=== PATIENT | female | born 2000 | race Caucasian/White ===

== ENCOUNTER 2021-08-20 04:59 | Inpatient (IN) ==
[2021-08-20] MEDS ORDERED: OXYTOCIN 30 UNITS/500 ML BAG IV PRN ×2 (09:30)
--- NOTE | 2021-08-20 09:32 | History & Physical Report ---
Date of Service August 20, 2021 Assessment & Plan (1) Supervision of normal intrauterine in primigravida: Plan: Admit to L&D. Cervix has changed to 3-4cm/100/-2, bulging membranes. labs, EFM, toco. Agreeable to pitocin if needed. Asks for stadol. History of Present Illness Chief Complaint: contractions Primary Care Provider: NO PCP 21yo @ 39 6/7, contractions since early this morning. + movement. No vaginal bleeding, no leaking fluid. Allergies Allergy/AdvReac Type Severity Reaction Status Date / Time No Known Allergies Allergy Verified 08/20/21 05:20 Home Medications Medication Instructions Recorded Confirmed Type prenat.vits,desi,otu-kbso-tpsej 1 tab PO DAILY 01/16/21 08/20/21 History Patient History Medical History (Updated 08/20/21 @ 05:20 by Gosia Abdi, RN) Epilepsy in childhood, "out grew" at age 8. No medications currently. 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 No s/s chorio or abruption. Skin: no rashes, warm and dry Psychiatric: A+Ox3, euthymic affect Results & Data ([facility]) Vital Signs (Past 12 Hours) Vital Signs Temp Pulse Resp BP 01/25/22 07:00 36.4 C L 82 16 135/86 08/20/21 05:43 93 H 113/68 08/20/21 05:15 36.6 C 20 08/20/21 05:11 93 H 130/79 Monitoring External Monitor FHT Cat 1 Tocodynamometer [place] Q 5 Coding Level of Care Code None Diagnoses Supervision of normal intrauterine in primigravida Z34.00
[2021-08-20] MEDS ORDERED: BUTORPHANOL TARTRATE 1 MG/ML VIAL IV ONE (09:35)
[2021-08-20 09:57] LABS: Hematocrit (blood only) 38.4 % (37-47); Hemoglobin 13.4 g/dL (12.0-16.0); Mean Corpuscular Hemoglobin 33.2 pg (25-34); Mean Corpuscular Hgb Conc 34.9 g/dL (32-36); Mean Platelet Volume 12.1 fL (7.4-10.4); Platelet Count 140 K/uL (130-400); RDW Coefficient of Variation 12.8 % (11.5-14.5); RDW Standard Deviation 44.1 fL (36.4-46.3); Red Blood Count 4.04 M/uL (4.2-5.4); White Blood Count 13.49 K/uL (4.8-10.8)
[2021-08-20] MEDS: LACTATED RINGER'S 1,000 ML IV PRN ×2 (10:19→16:12)
[2021-08-20] MEDS ORDERED: SODIUM CHLORIDE 0.9% INJ 10 ML VIAL ONE (14:57)
[2021-08-20] MEDS ORDERED: BUPIVACAINE 0.25% 30 ML VIAL ONE (14:57)
[2021-08-20] MEDS ORDERED: ePHEDrine sulfate 50 MG/ML AMP ONE (14:57)
[2021-08-20] MEDS ORDERED: fentaNYL citrate 100 MCG/2 ML VIAL ONE (14:57)
[2021-08-20] MEDS ORDERED: fentaNYL 2MCG/ML ROPIVACAINE 1.25MG/ML 100 ML BAG EPI ONE (14:58)
[2021-08-20] MEDS ORDERED: diphenhydrAMINE 50 MG/ML VIAL IV PRN (15:09)
[2021-08-20] MEDS ORDERED: NALOXONE HCL 0.4 MG/1 ML VIAL/CARP IV PRN (15:09)
[2021-08-20] MEDS ORDERED: ONDANSETRON INJ 2 MG/ML 2 ML VIAL IV PRN (15:09)
[2021-08-20] MEDS ORDERED: NALOXONE HCL 1 MG in SODIUM CHLORIDE 0.9% 1000ML 1,000 ML IV PRN (15:09)
[2021-08-20] MEDS ORDERED: ePHEDrine sulfate 50 MG/ML AMP IV PRN (15:09)
[2021-08-20] MEDS ORDERED: NALBUPHINE HCL INJ 10 MG/ML AMP IV PRN (15:09)
--- NOTE | 2021-08-20 15:11 | Anesthesiology Consultation ---
Date of Service August 20, 2021 Assessment & Plan (1) Encounter for pre-operative examination: Chart Review Chart Review: Patient NOT seen in Pre Admission Testing and Acceptable Risk for Labor Epidural Consults Requested none History Height/Weight Height: 5 ft 2 in Weight: 84.368 kg Allergies Allergy/AdvReac Type Severity Reaction Status Date / Time No Known Allergies Allergy Verified 08/20/21 05:20 Medications Home Medications Medication Instructions Recorded Confirmed Last Taken prenat.vits,desi,nms-yeoz-sdhnq 1 tab PO DAILY 01/16/21 08/20/21 08/19/21 08:00 Active Medications Generic Name Dose Route Start Last Admin Trade Name Freq PRN Reason Stop Dose Admin Lactated Ringer's 1,000 mls @ 125 mls/hr 08/20/21 09:30 08/20/21 10:19 Lr IV 08/22/21 09:29 125 mls/hr .Q8H PRN Administration L&D Protocol Protocol Past Medical History Medical History Epilepsy in childhood, "out grew" at age 8. No medications currently. Social History Smoking Status: Never smoker Hx Alcohol Use: No Hx Substance Use: No substance use type: does not use Physical Exam Vital Signs Last Vital Signs Temp 36.6 C 08/20/21 14:51 Pulse 77 08/20/21 15:12 Resp 16 08/20/21 14:51 BP 135/78 08/20/21 14:51 Pulse Ox 96 08/20/21 15:12 Testing Laboratory Results 08/20/21 09:37
[2021-08-20] MEDS: fentaNYL 2MCG/ML ROPIVACAINE 1.25MG/ML 100 ML BAG EPI PRN ×2 (15:40→23:05)
--- NOTE | 2021-08-20 16:58 | Labor Progress Brief Note ---
Date of Service August 20, 2021 Subjective Comfortable with epidural. AROM clear fluid FHT Cat 1 [place] Q 2 SVE 5/100/-2 Assessment & Plan Admission and Anticipated Discharge Date Admission Date: August 20, 2021 Results & Data ([facility]) Vital Signs (Past 12 Hours) Vital Signs Temp Pulse Resp BP Pulse Ox Pulse Ox 08/20/21 16:54 115 H 94 08/20/21 16:52 93 H 99 08/20/21 16:50 81 110/62 08/20/21 16:47 92 H 97 08/20/21 16:45 94 H 92 08/20/21 16:44 99 H 128/74 08/20/21 16:42 82 96 08/20/21 16:38 105 H 119/68 08/20/21 16:37 103 H 99 08/20/21 16:33 78 108/60 08/20/21 16:32 82 98 08/20/21 16:28 84 108/59 L 08/20/21 16:27 81 97 08/20/21 16:23 90 118/68 08/20/21 16:22 93 H 99 08/20/21 16:20 91 H 121/62 08/20/21 16:18 87 91 08/20/21 16:17 86 98 97 08/20/21 16:13 77 106/63 08/20/21 16:12 79 97 08/20/21 16:07 82 105/59 L 96 08/20/21 16:05 77 104/58 L 08/20/21 16:03 81 113/63 08/20/21 16:02 80 96 08/20/21 16:01 87 114/65 08/20/21 15:59 83 111/67 08/20/21 15:57 90 109/66 97 08/20/21 15:55 89 108/64 08/20/21 15:54 91 H 115/66 08/20/21 15:52 100 H 97 08/20/21 15:51 86 95/55 L 08/20/21 15:49 90 96/54 L 08/20/21 15:47 85 102/55 L 96 08/20/21 15:45 88 94/57 L 08/20/21 15:43 95 H 101/59 L 08/20/21 15:42 86 96 08/20/21 15:41 83 100/59 L 08/20/21 15:39 98 H 119/62 94 08/20/21 15:37 91 H 121/81 97 08/20/21 15:35 92 H 121/76 08/20/21 15:32 101 H 97 08/20/21 15:27 110 H 96 08/20/21 15:22 116 H 97 08/20/21 15:17 94 H 99 08/20/21 15:12 77 96 08/20/21 15:07 99 H 98 08/20/21 15:02 94 H 97 08/20/21 14:57 90 97 08/20/21 14:56 96 H 92 08/20/21 14:52 97 H 97 08/20/21 14:51 36.6 C 96 H 16 135/78 08/20/21 11:20 36.8 C 16 08/20/21 11:19 75 133/65 08/20/21 07:00 36.4 C L 82 16 135/86 08/20/21 05:43 93 H 113/68 08/20/21 05:15 36.6 C 20 08/20/21 05:11 93 H 130/79 Coding Level of Care Code None
[2021-08-20] MEDS ORDERED: NURSING L&D Epidural Breakthrough Pain Update ONE (21:19)
[2021-08-21] MEDS: LACTATED RINGER'S 1,000 ML IV PRN (00:57)
[2021-08-21] MEDS ORDERED: SILVER NITR/POTASSIUM NITRATE APPLICATOR ONE (02:59)
--- NOTE | 2021-08-21 03:11 | Delivery Summary ---
Vaginal Delivery Summary Date of Service August 21, 2021 Vaginal Delivery Summary and 1st Degree LAC Vaginal Delivery Summary: Pre-delivery diagnoses: 21yo @ 40 0/7, spontaneous labor Post-delivery diagnoses: same Procedure: spontaneous vaginal delivery, repair of 1st degree perineal laceration Surgeon: Chaya Bustamante DO Complications: none Findings: Viable male . Apgars: 8/9. Weight pending, please see nursery records. Estimated blood loss: 300ml Description of delivery: The patient progressed to complete with epidural anesthesia. She then began to push. She spontaneously vaginally delivered a viable from the cephalic presentation. The head delivered in KITTY position. The anterior shoulder delivered, followed by the posterior shoulder, followed by the body. No nuchal. The baby was placed on mother's abdomen and a spontaneous cry was heard. Delayed cord clamping was employed, and the cord was doubly clamped and cut. Cord blood was obtained. The placenta was delivered spontaneously intact with a 3-vessel cord. The uterus and vagina were swept of clots and debris. IV pitocin was given. The uterus became firm. The cervix, vagina, and perineum were inspected and a 1st degree laceration was noted and repaired with 3-0 vicryl. Excellent hemostasis was observed. The mother and baby are recovering in stable and good condition in the room. Sponge, needle and instrument counts were correct x 2. Chaya Bustamante DO [facility] Vaginal Delivery Charge Vaginal Delivery Codes: 08548 global code for the antepartum, delivery, and post- Delivery Type Details: and 1st Degree LAC
[2021-08-21] MEDS ORDERED: SUPERCREAM 0.870% 15 GM JAR EXT PRN (03:58)
[2021-08-21] MEDS ORDERED: HYDROCORTISONE ACETATE 25 MG SUPP PR PRN (03:58)
[2021-08-21] MEDS ORDERED: IBUPROFEN 600 MG TAB PO PRN (03:58)
[2021-08-21] MEDS ORDERED: oxyCODONE/ACETAMINOPHEN 5mg/325mg TAB PO PRN (03:58)
[2021-08-21] MEDS ORDERED: ACETAMINOPHEN 325 MG TAB PO PRN (03:58)
[2021-08-21] MEDS ORDERED: DIPHTHERIA/TETANUS/PERTUSSIS 0.5 ML SYR/VIAL IM ONE (03:58)
[2021-08-21] MEDS ORDERED: BENZOCAINE 20% AER SPR 82.5 GM CAN EXT PRN (03:58)
[2021-08-21] MEDS ORDERED: OXYTOCIN 30 UNITS/500 ML BAG IV PRN (03:58)
[2021-08-21] MEDS: DOCUSATE SODIUM 100 MG CAP PO SCH ×2 (09:14→19:38)
[2021-08-21] MEDS: PRENATAL VITAMIN 1 TAB PO SCH (09:14)
--- NOTE | 2021-08-21 10:47 | Anesthesia Procedure Note ---
Date of Service August 21, 2021 Anesthesia Post Epidural Note Vital Signs Vital Signs: Temp Pulse Resp BP Pulse Ox 97.7 F 83 20 119/69 97 08/21/21 08:56 08/21/21 08:56 08/21/21 08:56 08/21/21 08:56 08/21/21 08:56 Pain Intensity Pelvic: Pain Intensity: 2 Notes Mental Status: alert / awake / arousable and participated in evaluation Nausea / Vomiting: adequately controlled Pain: adequately controlled Airway Patency, RR, SpO2: stable & adequate BP & HR: stable & adequate Hydration State: stable & adequate Neuraxial Anesthesia: was administered and sensory block is resolving Anesthetic Complications: no major complications apparent and Pt Satisfied with anesthetic care Epidural: Removed without complications and With tip intact
--- NOTE | 2021-08-22 06:17 | Obstetrical Progress Note ---
Date of Service <Lucas Ureña DO - Last Filed: 08/22/21 07:18> August 22, 2021 Assessment & Plan <Lucas Ureña DO - Last Filed: 08/22/21 07:18> (1) Encounter for care and examination after delivery: 21 yo post day 1 from vaginal delivery, doing well. -Continue routine post care. -vital signs reviewed and WNL. (Tmax 37.6) -Blood type O+, GBS negative, Rubella Immune -Encourage ambulation, monitor and control pain with Motrin, tylenol PRN, resume regular diet, monitor lochia. -encourage breast feeding. -Discussed discharge with patient. Patient will follow up with Dr. Bustamante in the office in 6 weeks. <Dulce Maria Marc MD, FACOG - Last Filed: 08/22/21 07:38> (1) Encounter for care and examination after delivery: Subjective <Lucas Ureña DO - Last Filed: 08/22/21 07:18> Ambulation: ambulating normally Voiding: no voiding problems Passing Gas:: Yes Diet Tolerance:: regular diet Lochia:: Small Feeding Type:: breast feeding Current Pain Level(1-10): 0 Review of Systems Denies fever, chills, sweats Denies shortness of breath, difficulty breathing, chest pain, palpitations, chest pressure. Denies breast pain. Denies dysuria. Denies headache or changes in vision Physical Exam <Lucas Ureña DO - Last Filed: 08/22/21 07:18> General: Alert, oriented. No acute distress. Cardiac: Regular rate and rhythm, no murmurs/rubs/gallops. Respiratory: Clear to auscultation bilaterally a/p, no wheezes/rales/rhonchi. No increased work of breathing. Symmetrical chest rise. No respiratory distress. Abdomen: Soft, nontender, nondistended. Bowel sounds present. Uterus: Uterine fundus firm, palpable 3 cm below umbilicus. Lower Extremities: No lower extremity edema or swelling. No deep calf pain. Pat's negative bilaterally Results & Data ([facility]) <Lucas Ureña DO - Last Filed: 08/22/21 07:18> Vital Signs (Past 12 Hours) Vital Signs Temp Pulse Resp BP 08/21/21 23:30 36.8 C 68 18 134/86 08/21/21 19:30 36.7 C 92 H 20 135/84 <Dulce Maria Marc MD, FACOG - Last Filed: 08/22/21 07:38> Co-Signing Physician Notes Resident Physician Supervision Note: I interviewed and examined the patient. Discussed with Dr. Ureña and agree with findings and plan as documented in the note. Any exceptions or clarifications are listed here: Doing well. Plan d/c today. Instructions given. Documented By: Dulce Maria Marc MD, FACOG Resident Activity Tracking <Lucas Ureña DO - Last Filed: 08/22/21 07:18> Resident Involvement: Resident Care Provided Care Provided: OB Delivery
[2021-08-22 06:51] LABS: Hematocrit (blood only) 33.2 % (37-47); Hemoglobin 11.2 g/dL (12.0-16.0)
[2021-08-22] MEDS: PRENATAL VITAMIN 1 TAB PO SCH (07:40)
[2021-08-22] MEDS: DOCUSATE SODIUM 100 MG CAP PO SCH (07:40)
[2021-08-22] MEDS ORDERED: bisacodyL 5 MG TABEC PO SCH (20:00)
[2021-08-23] MEDS ORDERED: bisacodyL 10 MG SUPP PR PRN
== END 2021-08-22 12:25 | disposition home or self-care (01) | DRG 807 ==
LOC: OPB 04:59 → 4S1 05:03 → 4S2 08-21 05:35

== ENCOUNTER 2023-11-03 07:52 | Inpatient (IN) ==
[2023-11-03] MEDS ORDERED: LIDOCAINE 1% LOCAL 20 ML VIAL INFIL PRN (08:42)
[2023-11-03 09:19] LABS: Hematocrit (blood only) 35.4 % (37.0-47.0); Hemoglobin 12.2 g/dl (12.0-16.0); Mean Corpuscular Hemoglobin 31.9 pg (25.0-34.0); Mean Corpuscular Hgb Conc 34.5 g/dL (32.0-36.0); Mean Corpuscular Volume 92.4 fL (80.0-100.0); Mean Platelet Volume 12.2 fL (9.4-12.4); Platelet Count 137 K/uL (130-400); RDW Coefficient of Variation 13.9 % (11.5-14.5); RDW Standard Deviation 46.4 fL (36.4-46.3); Red Blood Count 3.83 M/uL (4.20-5.40); White Blood Count 7.07 K/ul (4.8-10.8)
[2023-11-03] MEDS: LACTATED RINGER'S 1,000 ML IV PRN (09:27)
--- NOTE | 2023-11-03 09:31 | History & Physical Report ---
Date of Service November 03, 2023 Assessment & Plan (1) Encounter for supervision of normal in multigravida: Plan: 23 yo at 40 3/7 wga presents for post dates iol VSS Fetus cat 1 Labor - 35cc andres placed ,tolerated well. Will start pit GBS neg epidural prn Admission and Anticipated Discharge Date Admission Date: November 03, 2023 History of Present Illness Chief Complaint: iol Primary Care Provider: NO PCP 23 yo at 40 3/7 wga presents for post dates iol. 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 No medications currently. Surgical History Status post surgery elbow Family History (Updated 04/13/23 @ 10:50 by Adry Nichols) Denies family history of Ovarian cancer Breast cancer Colorectal cancer Social History (Updated 04/13/23 @ 10:51 by Adry Nichols) Smoking Status: Never smoker Do You Dip or Chew Tobacco: No; Hx Alcohol Use: No Hx Substance Use: No Preferred Language: [place]an Fiction And Nonfiction Author Required: No Beliefs That Will Affect Care: None marital status: Single marital status details: Diego (24) [phone] Current Living Situation: Spouse Current Living Situation Comment: lives with spouse, child, 2 cats, FOB to change litter current occupational status: employed 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[employer] Other Information That Helps Us Care for You: No Feels Safe at Home: Yes Safety Concerns: Feels Safe At This Time Assistive Devices: None Physical Exam Genitourinary: OB Exam Abdomen: + vertex and + estimated weight (7-8) Manual OB Exam: + cervical dilation 1 cm, + cervical effacement 30% and + station -2 OB Exam Monitor Tracing: + external FHT monitor used, + external uterine monitor used (irreg) and + category I (140/mod/+accel/-decel) Results & Data Vital Signs (Past 12 Hours) Vital Signs Temp Pulse Resp BP 11/03/23 08:09 98.1 F 20 11/03/23 08:05 20 11/03/23 08:05 98.1 F 20 11/03/23 08:03 82 138/74 Laboratory Results OB Labs: Blood Type O Positive 04/14/23 Antibody Screen NEGATIVE 04/14/23 Hemoglobin 12.3 g/dl (12.0-16.0) 08/10/23 Hematocrit 34.6 % (37.0-47.0) L 08/10/23 Mean Corpuscular Volume 89.2 fL (80.0-100.0) 04/14/23 Platelet Count 181 K/uL (130-400) 04/14/23 Rubella IgG Antibody Immune (Immune) 04/14/23 Rapid Plasma Reagin Nonreactive (Nonreactive) 04/14/23 Hepatitis B Surface Antigen Neg (Neg) 01/22/21 Hepatitis B Surface Antigen. NON-REACTIVE (NON-REACTIVE) 04/14/23 Hepatitis C Antibody (EIA) NON-REACTIVE (NON-REACTIVE) 04/14/23 HIV (1&2) Ab and P24 Ag, 4th Gener Neg (Neg) 01/22/21 HIV (1&2) Ag and Ab Confirmation NON-REACTIVE (NON-REACTIVE) 04/14/23 Glucose 1 Hour 50 gm Load 87 mg/dl (70-130) 08/10/23 OB Optional Labs: Chlamydia trachomatis RNA Not Detected (NotDetected) 04/14/23 Neisseria gonorrhoeae RNA Not Detected (NotDetected) 04/14/23 Labs Reviewed: cfdna-low risk--mln cf/sma-negative prior --mln msafp declines smp GBS neg Diagnostic Findings post plac Coding Level of Care Code None Diagnoses Encounter for supervision of normal in multigravida Z34.80
[2023-11-03] MEDS: OXYTOCIN 30 UNITS/NSS 30 UNITS/500 ML BAG IV PRN ×2 (09:46→23:06)
--- NOTE | 2023-11-03 12:39 | Anesthesiology Consultation ---
Date of Service November 03, 2023 Assessment & Plan Chart Review Chart Review: Patient NOT seen in Pre Admission Testing and Acceptable Risk for Labor Epidural Consults Requested none History Height/Weight Height: 5 ft 2 in Weight: 87.543 kg Allergies Allergy/AdvReac Type Severity Reaction Status Date / Time No Known Allergies Allergy Verified 11/02/23 13:34 Medications Home Medications Medication Instructions Recorded Confirmed Last Taken prenat.vits,desi,dhh-ocpo-uykje 1 tab PO DAILY 01/16/21 11/03/23 11/03/23 Active Medications Generic Name Dose Route Start Last Admin Trade Name Freq PRN Reason Stop Dose Admin Oxytocin 30 units in 500 mls @ 8 mls/hr 11/03/23 08:47 11/03/23 11:30 Pitocin 30 Units/Nss IV 11/05/23 08:46 0.48 units/hr .Q24H PRN 8 mls/hr Labor Induction/Augmentation Titration Protocol 0.48 UNITS/HR Lactated Ringer's 1,000 mls @ 125 mls/hr 11/03/23 08:42 11/03/23 12:10 Lr IV 11/05/23 08:41 999 mls/hr .Q8H PRN Infusion L&D Protocol Protocol Past Medical History Medical History History of chicken pox Encounter for care and examination after delivery Encounter for pre-operative examination Epilepsy in childhood, "out grew" at age 8. No medications currently. Past Family History Family History Denies family history of Ovarian cancer Breast cancer Colorectal cancer Past Surgical History Surgical History Status post surgery elbow Social History Smoking Status: Never smoker Do You Dip or Chew Tobacco: No Hx Alcohol Use: No Hx Substance Use: No substance use type: does not use Physical Exam Vital Signs Last Vital Signs Temp 98.1 F 11/03/23 08:09 Pulse 75 11/03/23 12:09 Resp 16 11/03/23 12:30 BP 126/81 11/03/23 12:09 Testing Laboratory Results 11/03/23 08:59 Blood Type Cancelled 11/03/23 08:59 Blood Type O Positive 11/03/23 08:59 Antibody Screen Cancelled 11/03/23 08:59 Antibody Screen NEGATIVE 11/03/23 08:59
[2023-11-03] MEDS ORDERED: diphenhydrAMINE 50 MG/ML VIAL IV PRN ×2 (12:40→22:44)
[2023-11-03] MEDS ORDERED: ROPIVACAINE 0.5% PF 5 MG/ML 20 ML VIAL EPI PRN (12:40)
[2023-11-03] MEDS ORDERED: ePHEDrine sulfate 50 MG/ML AMP IV PRN ×2 (12:40→22:44)
[2023-11-03] MEDS ORDERED: LIDOCAINE 2% MPF LOCAL 5 ML VIAL EPI PRN (12:40)
[2023-11-03] MEDS ORDERED: NALOXONE HCL 0.4 MG/1 ML VIAL/CARP IV PRN ×2 (12:40→22:44)
[2023-11-03] MEDS ORDERED: NALOXONE HCL 1 MG in SODIUM CHLORIDE 0.9% 1,000 ML IV PRN ×2 (12:40→22:44)
[2023-11-03] MEDS ORDERED: NALBUPHINE HCL 5 MG in SYRINGE 0 ML IV PRN ×2 (12:40→22:44)
[2023-11-03] MEDS: fentANYL 2 MCG/ML BUPIVacaine 0.125%-NSS 100ML BAG EPI PRN (13:06)
[2023-11-03] MEDS: LIDOCAINE 2%/EPINEPHRINE 1:200,000 20 ML PF EPI STA (13:06)
[2023-11-03] MEDS: BUPIVACAINE 0.25% PF 30 ML VIAL EPI STA (13:06)
[2023-11-03] MEDS: BUPIVACAINE 0.25% PF 30 ML VIAL ONE ×2 (13:30→16:27)
[2023-11-03] MEDS: SODIUM CHLORIDE 0.9% PF INJ 10 ML VIAL EPI STA (13:31)
[2023-11-03] MEDS: LIDOCAINE 2%/EPINEPHRINE 1:200,000 20 ML PF ONE ×2 (13:31→16:26)
[2023-11-03] MEDS: ePHEDrine sulfate 50 MG/ML AMP ONE ×2 (13:31→16:37)
[2023-11-03] MEDS: fentANYL 2 MCG/ML BUPIVacaine 0.125%-NSS 100ML BAG ONE ×2 (13:31→16:40)
[2023-11-03] MEDS: SODIUM CHLORIDE 0.9% PF INJ 10 ML VIAL ONE ×2 (13:31→16:52)
[2023-11-03] MEDS: fentaNYL citrate PF 100 MCG/2 ML VIAL EPI STA (13:31)
[2023-11-03] MEDS: fentaNYL citrate PF 100 MCG/2 ML VIAL ONE ×2 (13:31→16:38)
--- NOTE | 2023-11-03 13:46 | Labor Progress Brief Note ---
Date of Service November 03, 2023 Subjective comfortable w/ epidural, balloon out earlier Assessment & Plan (1) Encounter for supervision of normal in multigravida: Plan: 23 yo at 40 3/7 wga presents for post dates iol VSS Fetus cat 1 Labor - pit at 8, now s/p arom. continue induction GBS neg epidural in place Admission and Anticipated Discharge Date Admission Date: November 03, 2023 Physical Exam Genitourinary: Manual OB Exam: + cervical dilation 4 cm, + cervical effacement 50%, + station -2 and + amniotic fluid clear OB Exam Monitor Tracing: + external FHT monitor used, + external uterine monitor used (q2-4) and + category I (120/mod/+accel/-decel) Results & Data Vital Signs (Past 12 Hours) Vital Signs Temp Pulse Resp BP Pulse Ox 11/03/23 13:40 98 11/03/23 13:40 89 11/03/23 13:39 83 11/03/23 13:39 121/78 11/03/23 13:35 98 11/03/23 13:35 92 H 11/03/23 13:33 111 H 11/03/23 13:33 111/60 11/03/23 13:30 97 11/03/23 13:30 98 H 11/03/23 13:29 88 11/03/23 13:29 108/63 11/03/23 13:25 18 11/03/23 13:25 18 11/03/23 13:25 98 11/03/23 13:25 107 H 11/03/23 13:25 105/56 L 11/03/23 13:20 20 11/03/23 13:20 20 11/03/23 13:20 96 11/03/23 13:20 85 11/03/23 13:18 106 H 11/03/23 13:18 116/65 11/03/23 13:17 88 11/03/23 13:17 121/70 11/03/23 13:15 97 11/03/23 13:15 100 H 11/03/23 13:15 92 H 11/03/23 13:15 111/62 11/03/23 13:13 81 11/03/23 13:13 114/67 11/03/23 13:11 87 11/03/23 13:11 120/73 11/03/23 13:09 97 11/03/23 13:09 84 11/03/23 13:09 83 11/03/23 13:09 140/79 11/03/23 13:07 80 11/03/23 13:07 133/80 11/03/23 13:05 95 H 11/03/23 13:05 140/84 11/03/23 13:04 98 11/03/23 13:04 100 H 11/03/23 13:00 94 H 11/03/23 13:00 148/93 H 11/03/23 12:59 98 11/03/23 12:59 105 H 11/03/23 12:54 98 11/03/23 12:54 87 11/03/23 12:30 16 11/03/23 12:30 16 11/03/23 12:09 75 11/03/23 12:09 126/81 11/03/23 12:00 20 11/03/23 12:00 20 11/03/23 11:30 20 11/03/23 11:30 20 11/03/23 11:00 18 11/03/23 11:00 18 11/03/23 10:57 76 11/03/23 10:57 123/82 11/03/23 10:30 20 11/03/23 10:30 20 11/03/23 10:00 18 11/03/23 10:00 18 11/03/23 09:45 78 11/03/23 09:45 130/80 11/03/23 09:30 20 11/03/23 09:30 20 11/03/23 09:00 20 11/03/23 09:00 20 11/03/23 08:09 98.1 F 20 11/03/23 08:05 20 11/03/23 08:05 98.1 F 20 11/03/23 08:03 82 138/74 Coding Level of Care Code None Diagnoses Encounter for supervision of normal in multigravida Z34.80
[2023-11-03] MEDS ORDERED: NURSING L&D Epidural Breakthrough Pain Update ONE (15:07)
[2023-11-03] MEDS: fentaNYL citrate PF 100 MCG/2 ML VIAL EPI PRN (15:38)
[2023-11-03] MEDS: SODIUM CHLORIDE 0.9% PF INJ 10 ML VIAL EPI PRN (15:39)
[2023-11-03] MEDS: BUPIVACAINE 0.25% PF 30 ML VIAL EPI PRN (15:39)
--- NOTE | 2023-11-03 15:39 | Anesthesia Procedure Note ---
Date of Service November 03, 2023 Anesthesia Epidural Re-Dose Vital Signs Temp Pulse Resp BP Pulse Ox 97.9 F 81 20 119/68 98 11/03/23 13:45 11/03/23 15:37 11/03/23 14:30 11/03/23 15:37 11/03/23 15:35 Notes Pain Intensity: 6 Dilatation (cm): 4.0 Effacement (%): 70 Called by nursing to evaluate epidural as the patient is having increased pain. The epidural was re-dosed with the following medications (all medications via epidural route) after negative aspiration of the epidural catheter for CSF/HEME. 0.125 %Bupivacaine (8ml) with 100 mcg Fentanyl After Epidural Re-Dose Mental Status: alert / awake / arousable Pain: improving with treatment Airway Patency, RR, SpO2: stable & adequate BP & HR: stable & adequate
--- NOTE | 2023-11-03 16:55 | Communication Note ---
Date of Service: November 03, 2023 After Re-dose patient stated pain initially improved and then worsened shortly afterward, epidural remains in place, dressing intact, educated patient on po tential subdural epidural placement given inadequate relief. Offered patient replacement which she agreed to. Patient id'd and timeout performed, first epidural removed, tip intact. Patient prepped and draped. L2-3 localized, 17 G thouy advanced with SANTY to saline achieved at 7 cm. 26G sprotte used for CSE with 0.25% bupiv (1ml) given. Catheter placed with ease and left at 13 cm at skin. Test dose lido/epi given (3ml) without patient complaint, aspiration negative. Sterile dressing secured. Patient reported adequate relief. Will continue to monitor
[2023-11-03] MEDS: TERBUTALINE SULFATE 1 MG/ML VIAL SQ ONE (17:48)
[2023-11-03] MEDS ORDERED: MoRPHine SULFATE PF 1 MG/ML 10 ML AMP/VIAL ONE (18:14)
[2023-11-03] MEDS ORDERED: SODIUM BICARB 8.4% INJ 50 MEQ/50 ML SYR IV ONE (18:14)
[2023-11-03] MEDS ORDERED: LIDOCAINE 2%/EPINEPHRINE 1:200,000 20 ML PF ONE (18:14)
[2023-11-03] MEDS ORDERED: ceFAZolin 330 MG/ML 1 GM VIAL ONE (18:14)
[2023-11-03] MEDS ORDERED: OXYTOCIN 10 UNITS/ML VIAL ONE (18:14)
[2023-11-03] MEDS ORDERED: MIDAZOLAM HCL 1 MG/ML 2ML VIAL ONE ×2 (18:16→18:26)
[2023-11-03] MEDS ORDERED: ONDANSETRON INJ 2 MG/ML 2 ML VIAL ONE (18:37)
--- NOTE | 2023-11-03 19:51 | Anesthesiology Progress Note ---
Date of Service November 03, 2023 Anesthesia Post Procedure Vital Signs Vital Signs: Temp Pulse Resp BP Pulse Ox O2 Del Method 11/03/23 19:47 93 11/03/23 19:47 111 H 11/03/23 19:43 127 H 11/03/23 19:43 133/62 11/03/23 19:42 93 11/03/23 19:42 131 H 11/03/23 19:40 18 Room Air 11/03/23 19:37 95 11/03/23 19:37 111 H 11/03/23 19:33 110 H 11/03/23 19:33 96/52 L 11/03/23 19:32 96 11/03/23 19:32 105 H 11/03/23 19:30 18 Room Air 11/03/23 19:30 87 L 11/03/23 19:30 125 H 11/03/23 19:27 93 11/03/23 19:27 106 H 11/03/23 19:23 110 H 11/03/23 19:23 100/58 L 11/03/23 19:22 94 11/03/23 19:22 111 H 11/03/23 19:20 16 Room Air 11/03/23 19:17 93 11/03/23 19:17 109 H 11/03/23 19:13 111 H 11/03/23 19:13 100/55 L 11/03/23 19:12 94 11/03/23 19:12 117 H 11/03/23 19:10 16 Room Air 11/03/23 19:09 114 H 11/03/23 19:09 102/60 11/03/23 19:07 93 11/03/23 19:07 119 H 11/03/23 19:05 115 H 11/03/23 19:05 104/55 L 11/03/23 19:03 94 11/03/23 19:03 115 H 11/03/23 19:02 95 11/03/23 19:02 116 H 11/03/23 19:01 120 H 11/03/23 19:01 82/48 L 11/03/23 19:00 99.0 F 11/03/23 19:00 116 H 11/03/23 19:00 80/35 L 11/03/23 18:57 94 11/03/23 18:57 120 H 11/03/23 18:00 100 11/03/23 18:00 144 H 11/03/23 17:57 73 11/03/23 17:57 118/77 11/03/23 17:55 100 11/03/23 17:55 137 H 11/03/23 17:50 100 11/03/23 17:50 122 H 11/03/23 17:47 64 11/03/23 17:47 151/73 H 11/03/23 17:45 100 11/03/23 17:45 115 H 11/03/23 17:41 91 11/03/23 17:41 124 H 11/03/23 17:40 98 11/03/23 17:40 120 H 11/03/23 17:36 134 H 11/03/23 17:36 156/94 H 11/03/23 17:35 99 11/03/23 17:35 124 H 11/03/23 17:30 97 11/03/23 17:30 135 H 11/03/23 17:27 50 L 11/03/23 17:27 148/103 H 11/03/23 17:25 99 11/03/23 17:25 151 H 11/03/23 17:20 98 11/03/23 17:20 122 H 11/03/23 17:15 98 11/03/23 17:15 115 H 11/03/23 17:10 99 11/03/23 17:10 126 H 11/03/23 17:05 90 11/03/23 17:05 132 H 11/03/23 17:00 18 11/03/23 17:00 98.1 F 18 11/03/23 17:00 98 11/03/23 17:00 126 H 11/03/23 17:00 117 H 11/03/23 17:00 151/98 H 11/03/23 16:55 96 11/03/23 16:55 117 H 11/03/23 16:50 97 11/03/23 16:50 131 H 11/03/23 16:45 99 11/03/23 16:45 129 H 11/03/23 16:40 98 11/03/23 16:40 131 H 11/03/23 16:37 126 H 11/03/23 16:37 115/55 L 11/03/23 16:35 98 11/03/23 16:35 119 H 11/03/23 16:31 90 11/03/23 16:31 107 H 11/03/23 16:31 185/142 H 11/03/23 16:30 97 11/03/23 16:30 104 H 11/03/23 16:27 110 H 11/03/23 16:27 154/76 H 11/03/23 16:25 76 L 11/03/23 16:25 100 H 11/03/23 16:25 89 L 11/03/23 16:25 106 H 11/03/23 16:20 94 11/03/23 16:20 95 H 11/03/23 16:19 91 11/03/23 16:19 105 H 11/03/23 16:15 99 11/03/23 16:15 88 11/03/23 16:11 80 L 11/03/23 16:11 110 H 11/03/23 16:10 99 11/03/23 16:10 97 H 11/03/23 16:05 97 11/03/23 16:05 91 H 11/03/23 16:02 85 11/03/23 16:02 123/70 11/03/23 16:00 22 11/03/23 16:00 98.1 F 22 11/03/23 16:00 99 11/03/23 16:00 84 11/03/23 15:57 88 11/03/23 15:57 118/58 L 11/03/23 15:55 97 11/03/23 15:55 91 H 11/03/23 15:55 129/86 11/03/23 15:53 85 11/03/23 15:53 144/80 H 11/03/23 15:51 88 11/03/23 15:51 121/66 11/03/23 15:50 99 11/03/23 15:50 83 11/03/23 15:50 94 H 11/03/23 15:50 132/81 11/03/23 15:47 98 H 11/03/23 15:47 116/68 11/03/23 15:45 95 11/03/23 15:45 90 11/03/23 15:45 116/70 11/03/23 15:43 83 11/03/23 15:43 119/73 11/03/23 15:42 94 11/03/23 15:42 84 11/03/23 15:41 83 11/03/23 15:41 143/77 H 11/03/23 15:40 97 11/03/23 15:40 83 11/03/23 15:39 80 11/03/23 15:39 125/73 11/03/23 15:37 81 11/03/23 15:37 119/68 11/03/23 15:35 98 11/03/23 15:35 85 11/03/23 15:32 87 11/03/23 15:32 112/66 11/03/23 15:30 99 11/03/23 15:30 79 11/03/23 15:25 99 11/03/23 15:25 77 11/03/23 15:20 98 11/03/23 15:20 79 11/03/23 15:17 79 11/03/23 15:17 130/77 11/03/23 15:15 98 11/03/23 15:15 81 11/03/23 15:10 99 11/03/23 15:10 76 11/03/23 15:05 100 11/03/23 15:05 78 11/03/23 15:02 72 11/03/23 15:02 119/67 11/03/23 15:00 100 11/03/23 15:00 81 11/03/23 14:55 99 11/03/23 14:55 76 11/03/23 14:50 98 11/03/23 14:50 81 11/03/23 14:48 72 11/03/23 14:48 114/63 11/03/23 14:45 98 11/03/23 14:45 79 11/03/23 14:40 99 11/03/23 14:40 77 11/03/23 14:35 99 11/03/23 14:35 78 11/03/23 14:35 77 11/03/23 14:35 158/87 H 11/03/23 14:30 20 11/03/23 14:30 20 11/03/23 14:30 99 11/03/23 14:30 70 11/03/23 14:25 98 11/03/23 14:25 70 11/03/23 14:20 99 11/03/23 14:20 74 11/03/23 14:17 74 11/03/23 14:17 141/78 H 11/03/23 14:15 99 11/03/23 14:15 72 11/03/23 14:10 98 11/03/23 14:10 71 11/03/23 14:05 99 11/03/23 14:05 73 11/03/23 14:02 68 11/03/23 14:02 131/78 11/03/23 14:00 18 11/03/23 14:00 18 11/03/23 14:00 97 11/03/23 14:00 77 11/03/23 13:55 99 11/03/23 13:55 76 11/03/23 13:50 98 11/03/23 13:50 74 11/03/23 13:45 97.9 F 11/03/23 13:45 97 11/03/23 13:45 78 11/03/23 13:45 76 11/03/23 13:45 131/77 11/03/23 13:40 98 11/03/23 13:40 89 11/03/23 13:39 83 11/03/23 13:39 121/78 11/03/23 13:35 98 11/03/23 13:35 92 H 11/03/23 13:33 111 H 11/03/23 13:33 111/60 11/03/23 13:30 20 11/03/23 13:30 20 11/03/23 13:30 97 11/03/23 13:30 98 H 11/03/23 13:29 88 11/03/23 13:29 108/63 11/03/23 13:25 18 11/03/23 13:25 18 11/03/23 13:25 98 11/03/23 13:25 107 H 11/03/23 13:25 105/56 L 11/03/23 13:20 20 11/03/23 13:20 20 11/03/23 13:20 96 11/03/23 13:20 85 11/03/23 13:18 106 H 11/03/23 13:18 116/65 11/03/23 13:17 88 11/03/23 13:17 121/70 11/03/23 13:15 97 11/03/23 13:15 100 H 11/03/23 13:15 92 H 11/03/23 13:15 111/62 11/03/23 13:13 81 11/03/23 13:13 114/67 11/03/23 13:11 87 11/03/23 13:11 120/73 11/03/23 13:09 97 11/03/23 13:09 84 11/03/23 13:09 83 11/03/23 13:09 140/79 11/03/23 13:07 80 11/03/23 13:07 133/80 11/03/23 13:05 95 H 11/03/23 13:05 140/84 11/03/23 13:04 98 11/03/23 13:04 100 H 11/03/23 13:00 20 11/03/23 13:00 20 11/03/23 13:00 94 H 11/03/23 13:00 148/93 H 11/03/23 12:59 98 11/03/23 12:59 105 H 11/03/23 12:54 98 11/03/23 12:54 87 11/03/23 12:30 16 11/03/23 12:30 16 11/03/23 12:09 75 11/03/23 12:09 126/81 11/03/23 12:00 20 11/03/23 12:00 20 11/03/23 11:30 20 11/03/23 11:30 20 11/03/23 11:00 18 11/03/23 11:00 18 11/03/23 10:57 76 11/03/23 10:57 123/82 11/03/23 10:30 20 11/03/23 10:30 20 11/03/23 10:00 18 11/03/23 10:00 18 11/03/23 09:45 78 11/03/23 09:45 130/80 11/03/23 09:30 20 11/03/23 09:30 20 11/03/23 09:00 20 11/03/23 09:00 20 11/03/23 08:09 98.1 F 20 11/03/23 08:05 20 11/03/23 08:05 98.1 F 20 11/03/23 08:03 82 138/74 Pain Intensity Lower Abdomen: Pain Intensity: 6 Transfer of Care Handoff Completed per policy Notes Mental Status: alert / awake / arousable and participated in evaluation Patient Amnestic to Procedure: Yes Nausea / Vomiting: adequately controlled Pain: adequately controlled Airway Patency, RR, SpO2: stable & adequate BP & HR: stable & adequate Hydration State: stable & adequate Anesthetic Complications: no major complications apparent and Pt Satisfied with anesthetic care
--- NOTE | 2023-11-03 19:51 | Anesthesia Procedure Note ---
Date of Service November 03, 2023 Anesthesia Post Epidural Note Vital Signs Vital Signs: Temp Pulse Resp BP Pulse Ox O2 Del Method 99.0 F 111 H 16 133/62 93 Room Air 11/03/23 19:00 11/03/23 19:47 11/03/23 19:10 11/03/23 19:43 11/03/23 19:47 11/03/23 19:10 Pain Intensity Lower Abdomen: Pain Intensity: 6 Notes Mental Status: alert / awake / arousable and participated in evaluation Nausea / Vomiting: adequately controlled Pain: adequately controlled Airway Patency, RR, SpO2: stable & adequate BP & HR: stable & adequate Hydration State: stable & adequate Neuraxial Anesthesia: was administered and sensory block is resolving Anesthetic Complications: no major complications apparent and Pt Satisfied with anesthetic care Epidural: Removed without complications and With tip intact
--- NOTE | 2023-11-03 20:08 | Labor Progress Brief Note ---
Date of Service November 03, 2023 Subjective Delayed entry due to patient care Assessment & Plan (1) Encounter for supervision of normal in multigravida: Plan: 23 yo at 40 3/7 wga presents for post dates iol Presented to check on patient after having epidural re-done. tracing was category 1 at that time and has been throughout induction. Had Decel during a cervical check which resolved with repositioning. Went to move again to a more comfortable position and decel again occurred into the 80s. Repositioning, IVF bolus performed, SVE again performed without any change so FSE was applied for accurate monitoring and pitocin turned off. Maternal pulse ox was already on. With application of FSE, it appeared like baseline was slowly improving into the 90s with accels into the 100s. Small amount of bleeding noted during exam. Continued repositioning was performed during this time with accel responses so it appeared to be a slowly increasing baseline with accels and no decels. Terbutaline was given and andres catheter placed as I discussed that if FHR did not continue to respond, that would need to proceed with stat section due to non-reassuring heart tones and procedure was reviewed with verbal informed consent obtained. These additional maneuvers seemed to help with baseline still slowly increasing into the 100s and accels noted so continued to monitor. Shortly after baseline seemed to be in 100-110s, decels again noted and so discussed that rec proceeding with stat and pt verbalized understanding and in agreement. See op note for details Admission and Anticipated Discharge Date Admission Date: November 03, 2023 Results & Data Vital Signs (Past 12 Hours) Vital Signs Temp Pulse Resp BP Pulse Ox O2 Del Method 11/03/23 19:53 112 H 11/03/23 19:53 126/66 11/03/23 19:52 93 11/03/23 19:52 105 H 11/03/23 19:50 16 Room Air 11/03/23 19:47 93 11/03/23 19:47 111 H 11/03/23 19:43 127 H 11/03/23 19:43 133/62 11/03/23 19:42 93 11/03/23 19:42 131 H 11/03/23 19:40 18 Room Air 11/03/23 19:37 95 11/03/23 19:37 111 H 11/03/23 19:33 110 H 11/03/23 19:33 96/52 L 11/03/23 19:32 96 11/03/23 19:32 105 H 11/03/23 19:30 18 Room Air 11/03/23 19:30 87 L 11/03/23 19:30 125 H 11/03/23 19:27 93 11/03/23 19:27 106 H 11/03/23 19:23 110 H 11/03/23 19:23 100/58 L 11/03/23 19:22 94 11/03/23 19:22 111 H 11/03/23 19:20 16 Room Air 11/03/23 19:17 93 11/03/23 19:17 109 H 11/03/23 19:13 111 H 11/03/23 19:13 100/55 L 11/03/23 19:12 94 11/03/23 19:12 117 H 11/03/23 19:10 16 Room Air 11/03/23 19:09 114 H 11/03/23 19:09 102/60 11/03/23 19:07 93 11/03/23 19:07 119 H 11/03/23 19:05 115 H 11/03/23 19:05 104/55 L 11/03/23 19:03 94 11/03/23 19:03 115 H 11/03/23 19:02 95 11/03/23 19:02 116 H 11/03/23 19:01 120 H 11/03/23 19:01 82/48 L 11/03/23 19:00 99.0 F 11/03/23 19:00 116 H 11/03/23 19:00 80/35 L 11/03/23 18:57 94 11/03/23 18:57 120 H 11/03/23 18:00 100 11/03/23 18:00 144 H 11/03/23 17:57 73 11/03/23 17:57 118/77 11/03/23 17:55 100 11/03/23 17:55 137 H 11/03/23 17:50 100 11/03/23 17:50 122 H 11/03/23 17:47 64 11/03/23 17:47 151/73 H 11/03/23 17:45 100 11/03/23 17:45 115 H 11/03/23 17:41 91 11/03/23 17:41 124 H 11/03/23 17:40 98 11/03/23 17:40 120 H 11/03/23 17:36 134 H 11/03/23 17:36 156/94 H 11/03/23 17:35 99 11/03/23 17:35 124 H 11/03/23 17:30 97 11/03/23 17:30 135 H 11/03/23 17:27 50 L 11/03/23 17:27 148/103 H 11/03/23 17:25 99 11/03/23 17:25 151 H 11/03/23 17:20 98 11/03/23 17:20 122 H 11/03/23 17:15 98 11/03/23 17:15 115 H 11/03/23 17:10 99 11/03/23 17:10 126 H 11/03/23 17:05 90 11/03/23 17:05 132 H 11/03/23 17:00 18 11/03/23 17:00 98.1 F 18 11/03/23 17:00 98 11/03/23 17:00 126 H 11/03/23 17:00 117 H 11/03/23 17:00 151/98 H 11/03/23 16:55 96 11/03/23 16:55 117 H 11/03/23 16:50 97 11/03/23 16:50 131 H 11/03/23 16:45 99 11/03/23 16:45 129 H 11/03/23 16:40 98 11/03/23 16:40 131 H 11/03/23 16:37 126 H 11/03/23 16:37 115/55 L 11/03/23 16:35 98 11/03/23 16:35 119 H 11/03/23 16:31 90 11/03/23 16:31 107 H 11/03/23 16:31 185/142 H 11/03/23 16:30 97 11/03/23 16:30 104 H 11/03/23 16:27 110 H 11/03/23 16:27 154/76 H 11/03/23 16:25 76 L 11/03/23 16:25 100 H 11/03/23 16:25 89 L 11/03/23 16:25 106 H 11/03/23 16:20 94 11/03/23 16:20 95 H 11/03/23 16:19 91 11/03/23 16:19 105 H 11/03/23 16:15 99 11/03/23 16:15 88 11/03/23 16:11 80 L 11/03/23 16:11 110 H 11/03/23 16:10 99 11/03/23 16:10 97 H 11/03/23 16:05 97 11/03/23 16:05 91 H 11/03/23 16:02 85 11/03/23 16:02 123/70 11/03/23 16:00 22 11/03/23 16:00 98.1 F 22 11/03/23 16:00 99 11/03/23 16:00 84 11/03/23 15:57 88 11/03/23 15:57 118/58 L 11/03/23 15:55 97 11/03/23 15:55 91 H 11/03/23 15:55 129/86 11/03/23 15:53 85 11/03/23 15:53 144/80 H 11/03/23 15:51 88 11/03/23 15:51 121/66 11/03/23 15:50 99 11/03/23 15:50 83 11/03/23 15:50 94 H 11/03/23 15:50 132/81 11/03/23 15:47 98 H 11/03/23 15:47 116/68 11/03/23 15:45 95 11/03/23 15:45 90 11/03/23 15:45 116/70 11/03/23 15:43 83 11/03/23 15:43 119/73 11/03/23 15:42 94 11/03/23 15:42 84 11/03/23 15:41 83 11/03/23 15:41 143/77 H 11/03/23 15:40 97 11/03/23 15:40 83 11/03/23 15:39 80 11/03/23 15:39 125/73 11/03/23 15:37 81 11/03/23 15:37 119/68 11/03/23 15:35 98 11/03/23 15:35 85 11/03/23 15:32 87 11/03/23 15:32 112/66 11/03/23 15:30 99 11/03/23 15:30 79 11/03/23 15:25 99 11/03/23 15:25 77 11/03/23 15:20 98 11/03/23 15:20 79 11/03/23 15:17 79 11/03/23 15:17 130/77 11/03/23 15:15 98 11/03/23 15:15 81 11/03/23 15:10 99 11/03/23 15:10 76 11/03/23 15:05 100 11/03/23 15:05 78 11/03/23 15:02 72 11/03/23 15:02 119/67 11/03/23 15:00 100 11/03/23 15:00 81 11/03/23 14:55 99 11/03/23 14:55 76 11/03/23 14:50 98 11/03/23 14:50 81 11/03/23 14:48 72 11/03/23 14:48 114/63 11/03/23 14:45 98 11/03/23 14:45 79 11/03/23 14:40 99 11/03/23 14:40 77 11/03/23 14:35 99 11/03/23 14:35 78 11/03/23 14:35 77 11/03/23 14:35 158/87 H 11/03/23 14:30 20 11/03/23 14:30 20 11/03/23 14:30 99 11/03/23 14:30 70 11/03/23 14:25 98 11/03/23 14:25 70 11/03/23 14:20 99 11/03/23 14:20 74 11/03/23 14:17 74 11/03/23 14:17 141/78 H 11/03/23 14:15 99 11/03/23 14:15 72 11/03/23 14:10 98 11/03/23 14:10 71 11/03/23 14:05 99 11/03/23 14:05 73 11/03/23 14:02 68 11/03/23 14:02 131/78 11/03/23 14:00 18 11/03/23 14:00 18 11/03/23 14:00 97 11/03/23 14:00 77 11/03/23 13:55 99 11/03/23 13:55 76 11/03/23 13:50 98 11/03/23 13:50 74 11/03/23 13:45 97.9 F 11/03/23 13:45 97 11/03/23 13:45 78 11/03/23 13:45 76 11/03/23 13:45 131/77 11/03/23 13:40 98 11/03/23 13:40 89 11/03/23 13:39 83 11/03/23 13:39 121/78 11/03/23 13:35 98 11/03/23 13:35 92 H 11/03/23 13:33 111 H 11/03/23 13:33 111/60 11/03/23 13:30 20 11/03/23 13:30 20 11/03/23 13:30 97 11/03/23 13:30 98 H 11/03/23 13:29 88 11/03/23 13:29 108/63 11/03/23 13:25 18 11/03/23 13:25 18 11/03/23 13:25 98 11/03/23 13:25 107 H 11/03/23 13:25 105/56 L 11/03/23 13:20 20 11/03/23 13:20 20 11/03/23 13:20 96 11/03/23 13:20 85 11/03/23 13:18 106 H 11/03/23 13:18 116/65 11/03/23 13:17 88 11/03/23 13:17 121/70 11/03/23 13:15 97 11/03/23 13:15 100 H 11/03/23 13:15 92 H 11/03/23 13:15 111/62 11/03/23 13:13 81 11/03/23 13:13 114/67 11/03/23 13:11 87 11/03/23 13:11 120/73 11/03/23 13:09 97 11/03/23 13:09 84 11/03/23 13:09 83 11/03/23 13:09 140/79 11/03/23 13:07 80 11/03/23 13:07 133/80 11/03/23 13:05 95 H 11/03/23 13:05 140/84 11/03/23 13:04 98 11/03/23 13:04 100 H 11/03/23 13:00 20 11/03/23 13:00 20 11/03/23 13:00 94 H 11/03/23 13:00 148/93 H 11/03/23 12:59 98 11/03/23 12:59 105 H 11/03/23 12:54 98 11/03/23 12:54 87 11/03/23 12:30 16 11/03/23 12:30 16 11/03/23 12:09 75 11/03/23 12:09 126/81 11/03/23 12:00 20 11/03/23 12:00 20 11/03/23 11:30 20 11/03/23 11:30 20 11/03/23 11:00 18 11/03/23 11:00 18 11/03/23 10:57 76 11/03/23 10:57 123/82 11/03/23 10:30 20 11/03/23 10:30 20 11/03/23 10:00 18 11/03/23 10:00 18 11/03/23 09:45 78 11/03/23 09:45 130/80 11/03/23 09:30 20 11/03/23 09:30 20 11/03/23 09:00 20 11/03/23 09:00 20 11/03/23 08:09 98.1 F 20 11/03/23 08:05 20 11/03/23 08:05 98.1 F 20 11/03/23 08:03 82 138/74 Coding Level of Care Code None Diagnoses Encounter for supervision of normal in multigravida Z34.80
[2023-11-03] MEDS ORDERED: SODIUM CHLORIDE 0.9% 250 ML IV PRN (21:25)
[2023-11-03] MEDS ORDERED: ACETAMINOPHEN 1,000 MG/100 ML VIAL IV PRN (22:44)
[2023-11-03] MEDS ORDERED: HYDROmorphone INJ 0.5 MG/0.5 ML SYR IV PRN (22:44)
[2023-11-03] MEDS ORDERED: NALOXONE HCL 0.08 MG in SYRINGE 1.8 ML IV PRN (22:44)
[2023-11-03] MEDS ORDERED: LACTATED RINGER'S 500 ML IV PRN (22:44)
[2023-11-03] MEDS ORDERED: ONDANSETRON INJ 2 MG/ML 2 ML VIAL IV PRN (22:44)
[2023-11-03] MEDS ORDERED: MoRPHine SULFATE PF 1 MG/ML 10 ML AMP/VIAL EPI ONE (22:44)
[2023-11-03] MEDS ORDERED: PROMETHAZINE HCL 6.25 MG in SODIUM CHLORIDE 0.9% 50 ML IV PRN (22:44)
[2023-11-03] MEDS ORDERED: DC INTRASPINAL MORPHINE SCH (22:45)
[2023-11-03] MEDS ORDERED: NO NARCOTICS OR SEDATIVES SCH (22:45)
[2023-11-03] MEDS ORDERED: SODIUM CHLORIDE 0.9% 1,000 ML IV SCH (22:45)
--- NOTE | 2023-11-03 22:45 | Operative Report ---
PG Post Operative Report Pre & Post Diagnosis Operation Date: 11/03/23 18:00 Pre-Op Diagnosis: Intrauterine at 40 Weeks; Nonreassuring FHR pattern Post-Op Diagnosis: Same; Delivery of a live female child at 1813 I identified the patient and participated in the time-out.: Yes Procedure Operation Date: 11/03/23 18:00 Actual Procedures p Primary Low Transverse Section in LD(Bilateral) - Aundrea Davis MD Surgeon Aundrea Davis MD Straightedge Machine Operator Helper MARY Dixon Estimated Blood Loss 591 (QBL 591) Findings Consistent with Post-Op Diagnosis Normal appearing uterus, bilateral fallopian tubes and ovaries. No obvious uterine or placental abnormality. Female weight 3430 with apgars of 1, 1, and 2 were noted Specimens placenta, cord gases Drains Andres draining clear urine Anesthesia Type Labor Epidural Complications none Disposition Disposition: L&D Indications 23 yo presented for post-dates IOL. Induction begun with andres bulb and pitocin. Following andres bulb expulsion, she received an epidural for pain control. She underwent arom and continued to progress. Patient became painful again and had some response to redose however needed another epidural placement for pain relief. Following epidural replacement, fetus was still reassuring. Pt noted increased pressure and requested cervical check and was found to be 7- 8cm. During that check, decel noted but recovered with repositioning. Shortly after decel was again noted and resuscitation measures restarted, see prior progress note for details. Initially tracing appeared to be responding however then worsened and so decision was made to proceed with delivery. Description of Procedure The patient was taken to the operating room after verbal consent was obtained due to emergent nature of procedure. The patient was properly identified. Epidural anesthesia was bolused without difficulty. The patient was placed in a dorsal supine position with left lateral tilt, then prepped and draped in normal sterile fashion. Surgical time out was performed. Antibiotics were given for prophylaxis. Anesthesia was tested to ensure adequate surgical levels. Pfannenstiel skin incision was performed and carried down to the underlying fascia with a knife. The fascia was then nicked in the midline and extended late rally with pickups and Cesar scissors. Superior portion of the fascia was grasped with Kochers x2 and elevated off the underlying rectus muscles using blunt dissection. Inferior portion of the fascia was then grasped with Vicenta clamps x2 and also elevated off the underlying muscles with blunt dissection. Midline was identified. The peritoneum was then entered and extended to provide adequate room for delivery of baby. A hand was inserted into the abdomen, uterus was noted to be clear of adhesions. Bladder blade was inserted, bladder flap was created in the usual fashion. A low transverse uterine incision was made in the uterus and extended bluntly in a superior to inferior fashion. head was grasped and elevated through the hysterotomy in an atraumatic fashion. The baby delivered in KITTY position, no nuchal cord. Remainder of the body delivered without incident. Nose and mouth were bulb suctioned on the surgical field. The cord was double clamped and cut, baby was handed off to awaiting pediatrics staff. Cord segment and blood were obtained. Placenta was then expressed from the uterus. The uterus was exteriorized. Several passes were made inside the uterus to remove the remaining membranes. Attention was then turned to the hysterotomy, which was then closed with a running locked suture of 0 Vicryl on a CTX needle. An imbricating layer was then performed using 0-Monocryl. There was noted to be good hemostasis. The posterior cul-de-sac was then inspected and cleaned of clot and debris. The hysterotomy was again inspected and noted to be hemostatic. The uterus was retu rned to the abdomen. The right and left pericolic gutters were cleaned of all clot and debris. The hysterotomy was again noted to be hemostatic. Space of Retzius was noted to be hemostatic. The fascia was then closed with a running suture of 0 Vicryl on a CT1 needle. Subcutaneous tissue was copiously irrigated and noted to be hemostatic. Subcutaneous tissue was re-approximated using 2-0 plain gut. The skin was then closed with a running suture of 3-0 Monocryl in a subcuticular fashion. At termination of the procedure, fundal pressure was applied and a moderate amount of lochia was expressed. Pressure dressing was applied to the patient. She tolerated the procedure well. All sponge, needle, instrument counts were correct x 2. Events surrounding delivery were reviewed with the patient and partner post-op and again debriefed in the recovery room. Patient and partner given ample time for question, questions answered to the best of my ability. I attest to the content of the Intraoperative Record and any orders documented therein. Any exceptions are noted below. OB Procedure Charges 03634
[2023-11-03] MEDS: AZITHROMYCIN 500 MG in DEXTROSE 5% 250 ML IV STA (23:07)
[2023-11-04] MEDS: KETOROLAC 30 MG/ML VIAL IV PRN (00:14)
[2023-11-04] MEDS: ceFAZolin 2000MG 2,000 MG/15 ML SYR IV SCH (02:19)
[2023-11-04] MEDS ORDERED: DIPHTHER/TETAN/PERTUS Vaccine (Tdap, Adol/Adult) 0.5mL IM ONE (03:49)
[2023-11-04] MEDS ORDERED: MAGNESIUM HYDROXIDE SUSP 30 ML UDC PO PRN (03:49)
[2023-11-04] MEDS ORDERED: SENNA 8.6 MG TAB PO PRN (03:49)
[2023-11-04] MEDS ORDERED: BENZOCAINE 20% SPRY 85 APPLN/85 GM CAN EXT PRN (03:49)
[2023-11-04] MEDS ORDERED: HYDROCORTISONE ACETATE 25 MG SUPP PR PRN (03:49)
[2023-11-04] MEDS ORDERED: LACTATED RINGER'S 1,000 ML IV SCH (04:00)
--- NOTE | 2023-11-04 06:33 | Obstetrical Progress Note ---
Date of Service November 04, 2023 Assessment & Plan (1) Encounter for care and examination after delivery: 23 yo POD 1 from [facility] for NRFHT, doing well -Eval of small gushes did not demonstrate additional trickle, nothing in the vagina from clot. Discussed methergine course, BP wnl. Continue pod1 cs care otherwise, abd binder ordered -Rh+/rubella immune -baby maybe showing slight improvement, pt says baby held onto dad's finger and they were going to try to wean the o2. NICU had called overnight saying that patient was interested in transfer so she could be with baby as well. With bleeding gushes, discussed that would not consider her stable to transfer but will discuss w/ oncoming provider regarding attempt later and pt verbalized understanding Subjective Ambulation: limited ambulation (on duramorph, did dangle) Voiding: andres catheter in place Passing Gas:: No Diet Tolerance:: regular diet Pain well managed with medication Had one gush overnight that I evaluated after nursing informed me and had no further gushes, fundus firm below umbilicus. Pitocin was hung at that time Just before rounding, nursing informed that had 2 smaller gushes again. Fundus again firm below umbilicus. VSS during this time Review of Systems Denies fevers, chills, n/v, DEL TORO, CP, SOB Physical Exam Constitutional WD/WN, vitals as above no acute distress Respiratory normal respiratory effort, lungs clear to auscultation Cardiovascular RRR, no murmur, no edema Gastrointestinal (Abdomen) Percussion/Palpation: abdomen soft; abdomen nontender fundus firm at umbilicus and NT. Dressing c/d/i Musculoskeletal BLE symmetric, nonerythematous, nontender Results & Data Vital Signs (Past 12 Hours) Vital Signs Temp Pulse Pulse Pulse Resp BP BP 11/04/23 06:05 18 11/04/23 05:56 96 H 96 H 16 104/69 11/04/23 05:05 18 11/04/23 04:05 16 11/04/23 03:40 97.7 F 103 H 18 104/67 11/04/23 03:05 18 11/04/23 02:05 18 11/04/23 01:05 16 11/04/23 00:05 98.8 F 114 H 16 108/68 11/04/23 00:05 16 11/04/23 00:05 11/03/23 23:52 11/03/23 23:52 124 H 11/03/23 23:47 11/03/23 23:47 138 H 11/03/23 23:42 11/03/23 23:42 139 H 11/03/23 23:37 11/03/23 23:37 145 H 11/03/23 23:32 11/03/23 23:32 141 H 11/03/23 23:27 11/03/23 23:27 139 H 11/03/23 23:22 11/03/23 23:22 124 H 11/03/23 23:17 11/03/23 23:17 137 H 11/03/23 23:12 11/03/23 23:12 127 H 11/03/23 23:07 11/03/23 23:07 118 H 11/03/23 23:02 11/03/23 23:02 118 H 11/03/23 22:57 11/03/23 22:57 131 H 11/03/23 22:52 11/03/23 22:52 131 H 11/03/23 22:47 11/03/23 22:47 123 H 11/03/23 22:42 11/03/23 22:42 125 H 11/03/23 22:37 11/03/23 22:37 139 H 11/03/23 22:32 11/03/23 22:32 150 H 11/03/23 22:27 11/03/23 22:27 126 H 11/03/23 22:22 11/03/23 22:22 127 H 11/03/23 22:17 11/03/23 22:17 134 H 11/03/23 22:12 11/03/23 22:12 121 H 11/03/23 22:07 11/03/23 22:07 127 H 11/03/23 22:02 11/03/23 22:02 125 H 11/03/23 21:57 11/03/23 21:57 119 H 11/03/23 21:52 11/03/23 21:52 116 H 11/03/23 21:47 11/03/23 21:47 114 H 11/03/23 21:42 11/03/23 21:42 120 H 11/03/23 21:37 11/03/23 21:37 115 H 11/03/23 21:32 11/03/23 21:32 115 H 11/03/23 21:27 11/03/23 21:27 131 H 11/03/23 21:22 11/03/23 21:22 113 H 11/03/23 21:17 11/03/23 21:17 120 H 11/03/23 21:12 11/03/23 21:12 121 H 11/03/23 21:07 11/03/23 21:07 112 H 11/03/23 21:02 11/03/23 21:02 124 H 11/03/23 21:00 99.1 F 16 11/03/23 20:59 108 H 11/03/23 20:59 129/76 11/03/23 20:57 11/03/23 20:57 121 H 11/03/23 20:52 11/03/23 20:52 108 H 11/03/23 20:47 11/03/23 20:47 109 H 11/03/23 20:42 11/03/23 20:42 112 H 11/03/23 20:37 11/03/23 20:37 118 H 11/03/23 20:35 111 H 11/03/23 20:35 104/68 11/03/23 20:32 11/03/23 20:32 102 H 11/03/23 20:30 16 11/03/23 20:27 11/03/23 20:27 112 H 11/03/23 20:22 11/03/23 20:22 115 H 11/03/23 20:17 11/03/23 20:17 128 H 11/03/23 20:12 11/03/23 20:12 106 H 11/03/23 20:07 11/03/23 20:07 107 H 11/03/23 20:03 103 H 11/03/23 20:03 120/61 11/03/23 20:02 11/03/23 20:02 110 H 11/03/23 20:00 98.8 F 11/03/23 20:00 98.8 F 16 11/03/23 19:57 11/03/23 19:57 109 H 11/03/23 19:53 112 H 11/03/23 19:53 126/66 11/03/23 19:52 11/03/23 19:52 105 H 11/03/23 19:50 16 11/03/23 19:47 11/03/23 19:47 111 H 11/03/23 19:43 127 H 11/03/23 19:43 133/62 11/03/23 19:42 11/03/23 19:42 131 H 11/03/23 19:40 18 11/03/23 19:37 11/03/23 19:37 111 H 11/03/23 19:33 110 H 11/03/23 19:33 96/52 L 11/03/23 19:32 11/03/23 19:32 105 H 11/03/23 19:30 18 11/03/23 19:30 11/03/23 19:30 125 H 11/03/23 19:27 11/03/23 19:27 106 H 11/03/23 19:23 110 H 11/03/23 19:23 100/58 L 11/03/23 19:22 11/03/23 19:22 111 H 11/03/23 19:20 16 11/03/23 19:17 11/03/23 19:17 109 H 11/03/23 19:13 111 H 11/03/23 19:13 100/55 L 11/03/23 19:12 11/03/23 19:12 117 H 11/03/23 19:10 16 11/03/23 19:09 114 H 11/03/23 19:09 102/60 11/03/23 19:07 11/03/23 19:07 119 H 11/03/23 19:05 115 H 11/03/23 19:05 104/55 L 11/03/23 19:03 11/03/23 19:03 115 H 11/03/23 19:02 11/03/23 19:02 116 H 11/03/23 19:01 120 H 11/03/23 19:01 82/48 L 11/03/23 19:00 99.0 F 11/03/23 19:00 116 H 11/03/23 19:00 80/35 L 11/03/23 18:57 11/03/23 18:57 120 H Pulse Ox Pulse Ox O2 Del Method O2 Del Method 11/04/23 06:05 96 11/04/23 05:56 95 Room Air 11/04/23 05:05 96 11/04/23 04:05 95 11/04/23 03:40 Room Air 11/04/23 03:05 95 11/04/23 02:05 96 11/04/23 01:05 100 11/04/23 00:05 Room Air 11/04/23 00:05 98 11/04/23 00:05 98 Room Air 11/03/23 23:52 98 11/03/23 23:52 11/03/23 23:47 98 11/03/23 23:47 11/03/23 23:42 98 11/03/23 23:42 11/03/23 23:37 97 11/03/23 23:37 11/03/23 23:32 98 11/03/23 23:32 11/03/23 23:27 98 11/03/23 23:27 11/03/23 23:22 98 11/03/23 23:22 11/03/23 23:17 97 11/03/23 23:17 11/03/23 23:12 94 11/03/23 23:12 11/03/23 23:07 95 11/03/23 23:07 11/03/23 23:02 96 11/03/23 23:02 11/03/23 22:57 96 11/03/23 22:57 11/03/23 22:52 96 11/03/23 22:52 11/03/23 22:47 95 11/03/23 22:47 11/03/23 22:42 96 11/03/23 22:42 11/03/23 22:37 96 11/03/23 22:37 11/03/23 22:32 96 11/03/23 22:32 11/03/23 22:27 96 11/03/23 22:27 11/03/23 22:22 96 11/03/23 22:22 11/03/23 22:17 98 11/03/23 22:17 11/03/23 22:12 96 11/03/23 22:12 11/03/23 22:07 97 11/03/23 22:07 11/03/23 22:02 97 11/03/23 22:02 11/03/23 21:57 95 11/03/23 21:57 11/03/23 21:52 97 11/03/23 21:52 11/03/23 21:47 95 11/03/23 21:47 11/03/23 21:42 95 11/03/23 21:42 11/03/23 21:37 98 11/03/23 21:37 11/03/23 21:32 96 11/03/23 21:32 11/03/23 21:27 96 11/03/23 21:27 11/03/23 21:22 95 11/03/23 21:22 11/03/23 21:17 97 11/03/23 21:17 11/03/23 21:12 96 11/03/23 21:12 11/03/23 21:07 95 11/03/23 21:07 11/03/23 21:02 96 11/03/23 21:02 11/03/23 21:00 Room Air 11/03/23 20:59 11/03/23 20:59 11/03/23 20:57 96 11/03/23 20:57 11/03/23 20:52 95 11/03/23 20:52 11/03/23 20:47 95 11/03/23 20:47 11/03/23 20:42 95 11/03/23 20:42 11/03/23 20:37 94 11/03/23 20:37 11/03/23 20:35 11/03/23 20:35 11/03/23 20:32 94 11/03/23 20:32 11/03/23 20:30 Room Air 11/03/23 20:27 94 11/03/23 20:27 11/03/23 20:22 93 11/03/23 20:22 11/03/23 20:17 94 11/03/23 20:17 11/03/23 20:12 95 11/03/23 20:12 11/03/23 20:07 94 11/03/23 20:07 11/03/23 20:03 11/03/23 20:03 11/03/23 20:02 94 11/03/23 20:02 11/03/23 20:00 Room Air 11/03/23 20:00 Room Air 11/03/23 19:57 92 11/03/23 19:57 11/03/23 19:53 11/03/23 19:53 11/03/23 19:52 93 11/03/23 19:52 11/03/23 19:50 Room Air 11/03/23 19:47 93 11/03/23 19:47 11/03/23 19:43 11/03/23 19:43 11/03/23 19:42 93 11/03/23 19:42 11/03/23 19:40 Room Air 11/03/23 19:37 95 11/03/23 19:37 11/03/23 19:33 11/03/23 19:33 11/03/23 19:32 96 11/03/23 19:32 11/03/23 19:30 Room Air 11/03/23 19:30 87 L 11/03/23 19:30 11/03/23 19:27 93 11/03/23 19:27 11/03/23 19:23 11/03/23 19:23 11/03/23 19:22 94 11/03/23 19:22 11/03/23 19:20 Room Air 11/03/23 19:17 93 11/03/23 19:17 11/03/23 19:13 11/03/23 19:13 11/03/23 19:12 94 11/03/23 19:12 11/03/23 19:10 Room Air 11/03/23 19:09 11/03/23 19:09 11/03/23 19:07 93 11/03/23 19:07 11/03/23 19:05 11/03/23 19:05 11/03/23 19:03 94 11/03/23 19:03 11/03/23 19:02 95 11/03/23 19:02 11/03/23 19:01 11/03/23 19:01 11/03/23 19:00 11/03/23 19:00 11/03/23 19:00 11/03/23 18:57 94 11/03/23 18:57
[2023-11-04 07:51] LABS: Hematocrit (blood only) 30.3 % (37.0-47.0); Hemoglobin 10.2 g/dl (12.0-16.0); Mean Corpuscular Hemoglobin 31.4 pg (25.0-34.0); Mean Corpuscular Hgb Conc 33.7 g/dL (32.0-36.0); Mean Corpuscular Volume 93.2 fL (80.0-100.0); Mean Platelet Volume 12.2 fL (9.4-12.4); Platelet Count 111 K/uL (130-400); RDW Coefficient of Variation 14.4 % (11.5-14.5); RDW Standard Deviation 48.3 fL (36.4-46.3); Red Blood Count 3.25 M/uL (4.20-5.40); White Blood Count 11.27 K/ul (4.8-10.8)
[2023-11-04 07:52] LABS: Basophils # (auto) 0.03 K/uL (0.00-0.20); Basophils % (auto) 0.3 %; Eosinophils # (auto) 0.01 K/uL (0.00-0.50); Eosinophils % (auto) 0.1 %; Immature Granulocytes # (auto) 0.04 K/uL (0.01-0.20); Immature Granulocytes % (auto) 0.4 %; Lymphocytes # (auto) 0.66 K/uL (1.20-3.40); Lymphocytes % (auto) 5.9 %; Monocytes # (auto) 0.66 K/uL (0.11-0.59); Monocytes % (auto) 5.9 %; Neutrophils # (auto) 9.87 K/uL (1.40-6.50); Neutrophils % (auto) 87.4 %
[2023-11-04] MEDS: OXYTOCIN 20 UNITS in LACTATED RINGER'S 1,000 ML IV SCH (07:56)
[2023-11-04] MEDS: DOCUSATE SODIUM 100 MG CAP PO SCH (08:53)
[2023-11-04] MEDS: SIMETHICONE 80 MG CHEW PO SCH (08:53)
[2023-11-04] MEDS: PRENATAL VITAMIN 1 TAB PO SCH (08:53)
[2023-11-04] MEDS: METHYLERGONOVINE MALEATE 0.2 MG TAB PO SCH (08:54)
[2023-11-04] MEDS: FERROUS SULFATE 325 MG TAB PO SCH (08:54)
[2023-11-04] MEDS ORDERED: ONDANSETRON INJ 2 MG/ML 2 ML VIAL IV PRN ×2 (12:15→16:44)
[2023-11-04] MEDS ORDERED: diphenhydrAMINE Capsule 25 MG CAP PO PRN ×2 (12:15→16:44)
[2023-11-04] MEDS ORDERED: diphenhydrAMINE 50 MG/ML VIAL IV PRN ×2 (12:15→16:44)
--- NOTE | 2023-11-04 12:34 | Communication Note ---
Date of Service: November 04, 2023 Assumed care of patient this morning from overnight physician Dr. Davis. Feeling physically well, minimal discomfort, still processing events surrounding delivery. FOB and patient's mom both visiting with infant Sandy in [facility]. Friend at bedside to support patient during my first visit. Patient's mom and a second friend had arrived by my second visit. Vitals reviewed. Patient was given methergine x24 hours postop and has had significant improvement in lochia, currently small (<50cc/5 hours), with Hgb 10.2 today. Sitting upright in bed, SCDs on, with no evident distress. Dressing clean and dry. It was already lifted on the R lateral end, so I was able to peek under it at the incision itself which is also c/d/i. Andres still in situ during my visits to bedside today. Although some heme noted in collection bag, clear urine in tubing c/w clearing. Per RN plan was to remove andres at 12:15 today. Patient is POD#1 s/p STAT for NRFHT. Mom's recovery has been uncomplicated to date. Discussed her interest in traveling to [facility] to be with baby. She inquired about transferring to OB service at [facility] as a patient, noting she was told by NICU physician who called her from [facility] that this was an option. Discussed that I would be happy to pursue transfer, but this would require permission from the OB mechatronics technologist who would be the accepting doctor. That person is different from the NICU physician, so I would need to communicate with [facility] and secure OB acceptance before I could promise the patient a transfer. I also counseled her that she is likely to be medically stable for a discharge from our hospital at 24 hours post delivery, at which point she could travel as a passenger in a private vehicle. She will reach 24 hours this evening which is not much different than the likely timing of any inter-facility transfer. I offered to attempt a transfer or plan for a discharge this evening; whichever patient prefers. She prefers to be discharged at 24 hours assuming medical stability at that time, and to travel privately. I called [facility] and spoke to the OB resident available at L&D to communicate with them about the above. OB team at [facility] are aware Nancy will be POD#1 and likely discharged this evening from here. She will thereafter be visiting their facility, and the OB team can reach me should there be any need to provide medical care for Nancy at any time during her presence there. I also provided Nancy with [employer] of percocet for tonight's travel and an Rx that she can fruit or nut picker tomorrow for future pain management needs.
[2023-11-04] MEDS: IBUPROFEN 600 MG TAB PO PRN (12:46)
[2023-11-04] MEDS: oxyCODONE/ACETAMINOPHEN 5mg/325mg TAB PO PRN (12:47)
[2023-11-04] MEDS ORDERED: PERCOCET 5/325MG HOMEPACK PO SCH (13:15)
[2023-11-04] MEDS ORDERED: PERCOCET 5/325MG HOMEPACK PO ONE (14:00)
[2023-11-04] MEDS ORDERED: oxyCODONE/ACETAMINOPHEN 5mg/325mg TAB PO PRN (16:44)
[2023-11-04] MEDS ORDERED: KETOROLAC 30 MG/ML VIAL IV PRN (16:44)
[2023-11-04] MEDS ORDERED: PROMETHAZINE HCL 25 MG in SODIUM CHLORIDE 0.9% 50 ML IV PRN (16:44)
[2023-11-05] MEDS ORDERED: bisacodyL 5 MG TABEC PO SCH (20:00)
[2023-11-06] MEDS ORDERED: bisacodyL 10 MG SUPP PR PRN (03:50)
--- NOTE | 2023-11-06 08:04 | Discharge Summary ---
Date of Service November 06, 2023 Admission HPI Per Admitting Provider 23 yo at 40 3/7 wga presents for post dates iol. +FM; denies ctx, LOF, VB PNI: None [employer] Hx: G1 2021 at 40 wks G2 current denies hx stis Discharge Data Consultations 11/03/23 08:43 Consult Anesthesiology Stat Procedures Performed Operation Date: 11/03/23 18:00 Actual Procedures p Section in LD(Bilateral) - Aundrea Davis MD Hospital Course (1) Encounter for care and examination after delivery: 23 yo presented for post-dates IOL. Induction begun with andres bulb and pitocin. Following andres bulb expulsion, she received an epidural for pain control. She underwent arom and continued to progress. Patient became painful again and had some response to redose however needed another epidural placement for pain relief. Following epidural replacement, fetus was still reassuring. Pt noted increased pressure and requested cervical check and was found to be 7- 8cm. During that check, decel noted but recovered with repositioning. Shortly after decel was again noted and resuscitation measures restarted, see prior progress note for details. Initially tracing appeared to be responding however then worsened and so decision was made to proceed with delivery. See operative report for details. Post-op course was uncomplicated. Due to infant transfer to NICU, pt was found to be stable for dc at 24 hour riley and discharged in orde r to be with Coding Level of Care Code None Diagnoses Encounter for care and examination after delivery Z39.2
== END 2023-11-04 18:35 | disposition home or self-care (01) | DRG 788 ==
LOC: 4S1 07:52 → 4E2 11-04 00:22
DX: O77.9 Labor and delivery complicated by fetal stress, unspecified; Z37.0 Single live birth; O48.0 Post-term pregnancy; Z3A.40 40 weeks gestation of pregnancy